=== PATIENT | male | born 1965 | race Caucasian/White ===

== ENCOUNTER → 2016-06-24 | Day surgery (SDC) | payer BC ==
[~2016-06-24] MED LIST: ALPRAZOLAM PO; ASPIRIN325 M1 PO; ATORVASTATIN CA10 MG PO; BACTRIM DS TABL1 TA1 PO; BYSTOLIC10 MG PO; BYSTOLIC20 MG PO; COREG PO; GLUCOPHAGE500 MG PO; LEVAQUIN750 MG PO; LISINOPRIL10 MG PO; LISINOPRIL20 MG PO; LOPID600 MG PO; MOTRIN400 MG PO; NICOTINE TRANSD14 MG TOP; NICOTINE TRANSD21 MG EXT; OXYCODON HCL-1 UDTAB PO; OXYCODONE-ACET1 EAC1 PO; OXYCONTIN; PRILOSEC PO; PRILOSEC20 MG PO; PRINIVIL20 M1 PO; PROAIR HFA8.5 GM INH; SERTRALINE HCL50 M1 PO; VIBRAMYCIN100 M1 PO; XANAX1 MG PO; ZESTRIL10 M1 PO; ZOLOFT PO
--- NOTE | ~2016-06-24 | EKG ---
PATIENT: BOO MARTINEZ UNIT #: [id number] Ventricular Rate: 79 BPM Atrial Rate: 79 BPM P-R Interval: 130 ms QRS Duration: 84 ms Q-T Interval: 386 ms QTC Calculation(Bezet): 442 ms P [place]: 19 degrees Calculated R [place]: -27 degrees Calculated T [place]: -34 degrees Diagnosis Line: Normal sinus rhythm Diagnosis Line: Moderate voltage criteria for LVH, may be normal Diagnosis Line: variant Diagnosis Line: Nonspecific T wave abnormality Diagnosis Line: Abnormal ECG Diagnosis Line: When compared with ECG of 10-JUL-2013 18:59, Diagnosis Line: Vent. rate has decreased BY 54 BPM Diagnosis Line: Nonspecific T wave abnormality now evident in Diagnosis Line: Anterior leads Diagnosis Line: Confirmed by ALEXIS CAMPBELL MD ([id number]) on 06/24/2016 Diagnosis Line: 10:20:13 PM INTERPRETING MD: ADRIAN ADAMS
--- NOTE | ~2016-06-24 | CR246 ---
[facility] A Service of [facility] RADIOLOGY TEXT RESULTS PATIENT: BOO MARTINEZ LOCATION: [facility] : [birth year] UNIT #: [id number] AGE: [address]: Iam Lubin MD SEX: M ORDER DR: [id number] [facility] [address] [place], [place] [address] [id number] O MR#: [id number] Acc #: [id number] NAME: BOO MARTINEZ : 1965 SEX: M STUDY DATE/TIME: 06/24/2016 9:57 UNIT: [facility] ROOM: STUDY DESCRIPTION: CR Thoracic Spine SIngle View Attending Physician: Iam Lubin M.D. Ordering Physician: Iam Lubin M.D. Primary Care Physician: Cleveland Mclaughlin M.D. MEDICAL IMAGING REPORT This report is preliminary unless electronic signature is present EXAM Thoracic spine single view, 06/24/2016 HISTORY Spinal cord stimulator trial. Placement of catheter. Chronic back pain. Symptoms began 4 months ago. FINDINGS A single AP fluoroscopic view of the lower thoracic spine is presented. Fluoroscopy time 38 seconds. Radiodensity having appearance of spinal cord stimulator superimposed over midline of lower thoracic spine. Please see procedural note for full details. Dictated by... Winston Yu M.D. THIS IS AN ELECTRONICALLY VERIFIED REPORT Winston Yu M.D. at 06/24/2016 6:37 PM Rosaura TD: 06/24/2016 16:44 JOB #: [id number] MEDICAL IMAGING REPORT Page 1 of 1 COPY
--- NOTE | ~2016-06-24 | OR ---
Unit #: [id number] #: [id number] Patient: BOO MARTINEZ [id number] [address] [address] [id number] O MR#: [id number] NAME: BOO MARTINEZ ROOM: Date of Procedure: 06/24/2016 Admission Date: 06/24/2016 Surgeon: Iam Lubin M.D. : 1965 Attending Physician: Iam Lubin M.D. Primary Care Physician: Cleveland Mclaughlin M.D. OPERATIVE REPORT PREOPERATIVE DIAGNOSES 1. Postlaminectomy syndrome. 2. Chronic radiculopathy. POSTOPERATIVE DIAGNOSES 1. Postlaminectomy syndrome. 2. Chronic radiculopathy. PROCEDURES PERFORMED Spinal cord stimulator trial with percutaneous stimulator lead x1 placement with fluoroscopic guidance and sedation for anxiolysis. DESCRIPTION OF PROCEDURE The patient was placed in a prone position. Standard monitors were applied. Sterile prep and drape of the thoracolumbar area was performed. Fluoroscopy was used to identify the level at the L2-L3 interspace. The skin just to the left of midline was localized with 0.5% Marcaine. An 11-blade was used for stab incision. A 14-gauge introducer needle was then advanced via loss of resistance technique and fluoroscopic guidance via slight left paramedian approach just to the left of midline. The patient had some localized discomfort, but no paresthesia. After placing the needle in the epidural space, a 16-lead stimulator electrode was passed with fluoroscopic guidance. The catheter was threaded, so that the distal tip laid approximately the midpoints of T9. Stimulation was obtained in the middle of the leads, which covered all of these painful areas from his low back to his foot. The catheter was then securely fastened using 2-0 silk and sterilely dressed. The patient tolerated the procedure otherwise well. The catheter serial number used was [id number], model was [id number]. The patient otherwise tolerated the procedure well and was discharged to recovery room in stable condition. Dictated by... Abril Jackson/maite TD: 06/24/2016 23:04 JOB #: [id number] Unit #: [id number] #: [id number] Patient: BOO MARTINEZ OPERATIVE REPORT Page 1 of 1 X Iam Lubin MD X PROCEDURE OPERATIVE NOTE
== END | disposition home or self-care (01) ==
LOC: CSUR 07:39
DX: M96.1 Postlaminectomy syndrome, not elsewhere classified (principal); G89.29 Other chronic pain; M54.16 Radiculopathy, lumbar region; K21.9 Gastro-esophageal reflux disease without esophagitis; M19.90 Unspecified osteoarthritis, unspecified site; F17.210 Nicotine dependence, cigarettes, uncomplicated; Z88.5 Allergy status to narcotic agent; Z98.890 Other specified postprocedural states
CPT/HCPCS: 72020; 76000; 82947; 93005; C1778; J2250

== ENCOUNTER → 2016-08-12 | Day surgery (SDC) | payer BC ==
--- NOTE | ~2016-08-12 | OR ---
Unit #: [id number] #: [id number] Patient: BOO MARTINEZ [id number] [address] [place], [place] [address] [id number] O MR#: [id number] NAME: BOO MARTINEZ ROOM: Date of Procedure: 08/12/2016 Admission Date: 08/12/2016 Surgeon: Iam Lubin M.D. : 1965 Attending Physician: Iam Lubin M.D. Referring Physician: Iam Lubin M.D. Primary Care Physician: Ruel Flynn M.D. OPERATIVE REPORT PREOPERATIVE DIAGNOSES Post-laminectomy syndrome, chronic radiculopathy, intractable pain. POSTOPERATIVE DIAGNOSES Post-laminectomy syndrome, chronic radiculopathy, intractable pain. PROCEDURE PERFORMED Spinal cord stimulator lead x2, place pulse generator for spinal cord stimulator. ANESTHESIA MAC. PREOPERATIVE ANTIBIOTICS Ancef protocol. ESTIMATED BLOOD LOSS 5 mL. DESCRIPTION OF PROCEDURE The patient was placed in a prone position, he got himself comfortable. Standard monitors were applied. Sterile prep and drape were performed. 0.5% Marcaine with epinephrine was used to localize the skin just to the right of midline from approximately L1 down to L3. Sharp and then Bovie dissection were used to dissect down to the paraspinous area. A 14-gauge introducer needle was then advanced via slight right paramedian approach in toward the epidural space with loss of resistance technique. After entering the epidural space to thread the stimulator lead cephalad. The cephalad lead was advanced in the midline, so the distal tip laid at the midpoint of the T9. A second 14-gauge introducer needle was then advanced via right paramedian approach and loss of resistance technique at the L1-L2 level. After confirming positioning in the epidural space, the catheter was advanced just to the left of midline, again at the distal tip lying about the midpoint of the T9 vertebral body. This was the level that we determined during the trial. They gave him the best symptomatic control. Stimulation was then obtained in the middle of electrodes, we were able to cover all of the painful areas. The patient's significant left-sided pain buttock, back, and hips. The stimulator electrodes were then both securely fastened with 2-0 silk in position. Sharp and then local anesthetic were used in the patient's right buttock. Sharp and Bovie dissection were used to create an IPG Unit #: [id number] #: [id number] Patient: BOO MARTINEZ. Once it was properly sized, hemostasis was obtained. The tunneling device was passed from the pocket to the paraspinous region. The leads were easily tunneled down to the buttock and attached to the connector leads. Make sure that the pocket was big enough and it was properly sized to contain the IPG and the connector leads. Both wounds were copiously irrigated with irrigant. The IPG was then placed in the pocket and impedances were checked, which were all normal. The paraspinous wound was closed in multiple layers with 2-0 Vicryl. The buttock wound was closed in 2 layers with 2-0 Vicryl and then kathryn were used in both of these wounds in the skin. Sterile dressings were applied. The patient was discharged to the recovery room in stable condition. . Dictated by... Iam Lubin M.D. SOUMYA/maite TD: 08/13/2016 01:03 JOB #: [id number] OPERATIVE REPORT Page 1 of 1 X Iam Lubin MD X PROCEDURE OPERATIVE NOTE
[2016-08-12 07:34] LABS: CALCIUM SERUM 9.4 mg/dL (8.4-10.2); POTASSIUM 4.2 mmol/L (3.5-5.1)
== END | disposition home or self-care (01) ==
LOC: CSUR 06:25
PROVIDERS: Pain Medicine Pain Medicine
DX: M96.1 Postlaminectomy syndrome, not elsewhere classified (principal); G89.29 Other chronic pain; M54.16 Radiculopathy, lumbar region; K21.9 Gastro-esophageal reflux disease without esophagitis; M19.90 Unspecified osteoarthritis, unspecified site; E11.9 Type 2 diabetes mellitus without complications; I10 Essential (primary) hypertension; E78.5 Hyperlipidemia, unspecified; Z98.890 Other specified postprocedural states; Z87.891 Personal history of nicotine dependence; Z79.899 Other long term (current) drug therapy; Z79.84 Long term (current) use of oral hypoglycemic drugs; Z88.8 Allergy status to other drugs, medicaments and biological substances
CPT/HCPCS: 77003; 80048; 82947; C1778; C1820; C1883; J0690; J2250; J3010